=== PATIENT | female | born 1995 | race Caucasian/White ===

== ENCOUNTER 2018-01-07 10:09 | Emergency (ER) | payer SELFPAY ==
[~2018-01-07] VITALS: Ht 162.6 cm; Wt 75.3 kg
[2018-01-07 10:11] VITALS: BP 111/75
== END 2018-01-07 10:53 | disposition home or self-care (01) ==
LOC: ED 10:47
DX: L24.89 Irritant contact dermatitis due to other agents (principal); J45.909 Unspecified asthma, uncomplicated
CPT/HCPCS: 99282

== ENCOUNTER 2018-02-18 14:22 | Emergency (ER) | payer SELFPAY ==
[~2018-02-18] VITALS: Ht 162.6 cm; Wt 78.0 kg
[2018-02-18] MEDS ORDERED: ONDANSETRON ODT 4 MG PO ONE (15:00)
[2018-02-18] MEDS ORDERED: ONDANSETRON ODT 4 MG ONE (15:03)
[2018-02-18 15:21] LABS: BASOPHILS # (AUTO) 0.03 x10^3/uL (0-0.1); BASOPHILS % (AUTO) 1 % (0-1); EOSINOPHILS # (AUTO) 0.16 x10^3/uL (0-0.4); EOSINOPHILS % (AUTO) 4 % (1-7); LYMPHOCYTES # (AUTO) 2.34 x10^3/uL (1-3.4); LYMPHOCYTES % (AUTO) 52 % (22-44); MD NO; MEAN CORPUSCULAR HEMOGLOBIN 26.7 pg (27.0-34.8); MEAN CORPUSCULAR HGB CONC 33.3 g/dL (32.4-35.8); MEAN CORPUSCULAR VOLUME 80.2 fL (80-100); MEAN PLATELET VOLUME 8.4 fL (7.4-10.4); MONOCYTES % (AUTO) 11 % (2-9); NEUTROPHILS # (AUTO) 1.48 x10^3/uL (1.8-6.8); NEUTROPHILS % (AUTO) 33 % (42-75); PLATELET COUNT 290 x10^3/uL (130-400); RED BLOOD COUNT 5.44 x10^6/uL (3.82-5.3); RED CELL DISTRIBUTION WIDTH 15.4 % (9.6-15.2)
[2018-02-18 15:25] LABS: CULTURE INDICATED? NO; MICROSCOPIC NOT IND
[2018-02-18 15:34] LABS: ANION GAP 4 mmol/L (5-15); CALCIUM 9.1 mg/dL (8.5-10.1); CHLORIDE 111 mmol/L (98-107); CREATININE 0.91 mg/dL (0.55-1.02)
[2018-02-18 16:03] VITALS: BP 116/69
== END 2018-02-18 16:05 | disposition home or self-care (01) ==
LOC: ED 15:59
DX: N92.0 Excessive and frequent menstruation with regular cycle (principal); J45.909 Unspecified asthma, uncomplicated; R19.7 Diarrhea, unspecified
CPT/HCPCS: 36415; 80048; 81003; 82040; 84703; 85025; 99284; Q0162

== ENCOUNTER 2018-03-23 20:17 | Emergency (ER) | payer OTHER ==
[~2018-03-23] VITALS: Ht 162.6 cm; Wt 79.3 kg
[2018-03-23 20:21] VITALS: BP 112/65
== END 2018-03-23 22:29 | disposition home or self-care (01) ==
LOC: ED 22:23
DX: T19.2XXA Foreign body in vulva and vagina, initial encounter (principal); Z00.00 Encounter for general adult medical examination without abnormal findings; J45.909 Unspecified asthma, uncomplicated; X58.XXXA Exposure to other specified factors, initial encounter; Y93.89 Activity, other specified; Y92.89 Other specified places as the place of occurrence of the external cause; Y99.8 Other external cause status
CPT/HCPCS: 99283